=== PATIENT | female | born 1930 ===

== ENCOUNTER 2017-08-16 13:36 | Observation (INO) | payer MEDICARE, BC ==
[2017-08-16 14:26] LABS: Bilirubin Negative (Negative); Blood, Urine Small (Negative); Clarity Clear (Clear); Glucose, Urine (Dipstick) Negative (Negative); Leukocyte Negative (Negative); Nitrite Negative (Negative); Protein, Urine (Dipstick) > or equal to 300 mg/dL (Neg-Trace); Urobilinogen 0.2 mg/dL (0.2-1.0); pH, Urine 8.5 (5.0-9.0)
[2017-08-16 14:33] LABS: Bacteria/HPF None Seen HPF (None Seen); Hyaline Casts/LPF 0-3 HYALINE CAST LPF (0-3 Hyaline); Squamous Epithelial None Seen HPF (0-3); WBC/HPF 0-3 HPF (0-3)
[2017-08-16 14:36] LABS: #Basophils 0.1 thou/uL (0.0-0.2); #Eosinphils 0.3 thou/uL (0.0-0.7); #Lymphocytes 0.7 thou/uL (1.20-3.40); #Monocytes 0.5 thou/uL (0.11-0.59); #Neutrophils 6.5 thou/uL (1.40-6.50); %Eosinophils 3.3 % (0.0-10.0); %Lymphocytes 8.6 % (21.0-51.0); %Monocytes 6.3 % (0.0-10.0); %Neutrophils 80.8 % (42.0-75.0); Hemoglobin 13.9 g/dL (12.0-16.0); Mean Corpuscular HGB CONC 33.2 g/dL (32.0-36.0); Mean Corpuscular Hemoglobin 33.2 pg (27.0-31.0); Mean Corpuscular Volume 99.8 fl (81.0-99.0); Mean Platelet Volume 7.4 fL (7.4-10.4); Platelet Count 215 thou/uL (130-400); RBC Distribution Width 13.6 % (11.5-14.5)
[2017-08-16] MEDS ORDERED: Ondansetron HCl/PF 4 MG/2 ML Vial ONE (14:36)
--- NOTE | 2017-08-16 14:38 | CT ---
CT BRAIN WITHOUT CONTRAST: Date: 08/16/17 HISTORY: 87-year-old female fell when sitting to use toilet. No loss of consciousness. Patient is on warfarin. She sustained a laceration to her forehead. FINDINGS: There are no previous exams for comparison. A soft tissue hematoma is seen in the left frontal scalp. There are changes of cortical atrophy and c hronic small vessel ischemic disease. No evidence of acute infarct, hemorrhage, midline shift, or abn ormal extra-axial fluid collections are seen. The bony calvarium is intact. There are fractures invol ving the nasal bones. The visualized paranasal sinuses and mastoid air cells are well aerated. IMPRESSION: No CT evidence of acute intracranial process. POS: [facility]
[2017-08-16 14:43] LABS: INR-International Normal Ratio 2.1; PTT 38.1 SEC (22.9-36.1); Prothrombin Time 23.8 SEC (12.0-14.7)
--- NOTE | 2017-08-16 14:43 | CT ---
CT OF THE CERVICAL SPINE WITHOUT CONTRAST: Date: 08/16/17 COMPARISON: None. HISTORY: Fall when sitting to use toilet. Neck pain. Forehead trauma. TECHNIQUE: Multiple contiguous axial images were obtained in a CT of the cervical spine without contrast. Sagitt al and coronal reformats were performed. FINDINGS: The vertebral bodies and intervertebral discs demonstrate normal height and alignment without fractur e or subluxation. No prevertebral soft tissue swelling is present. The posterior facets are well aligned. Normal alignment of the skull base with the cervical spine is seen. IMPRESSION: No evidence of acute osseous abnormality of the cervical spine. POS: [facility]
--- NOTE | 2017-08-16 14:45 | CT ---
CT FACE WITHOUT CONTRAST: Date: 08/16/17 COMPARISON: None. HISTORY: Fell while trying to sit on toilet, with forehead trauma. TECHNIQUE: Multiple contiguous axial images were obtained in a CT of the face without contrast. Sagittal and cor onal reformats were performed. FINDINGS: There is soft tissue swelling in the forehead. There are minimally displaced fracture of the nasal ama manan. No other facial fractures are seen. The paranasal sinuses are well aerated. The mastoid air cell s are well aerated. The globes and retrobulbar soft tissues are unremarkable. The visualized intracranial structures are unremarkable. IMPRESSION: Mildly displaced bilateral nasal bone fractures. POS: [facility]
[2017-08-16 14:54] LABS: ALT (SGPT) 28 U/L (8-55); AST (SGOT) 34 U/L (5-34); Albumin 4.2 g/dL (3.4-4.8); Alkaline Phosphatase 95 U/L (40-150); Anion Gap 17 mmol/L (10-20); BUN (Urea Nitrogen) 14 mg/dL (9.8-20.1); Bilirubin, Total 0.6 mg/dL (0.2-1.2); Calc. Creatinine Clearance 0 mL/min (70-130); Calcium 10.4 mg/dL (7.8-10.44); Carbon Dioxide 24 mmol/L (23-31); Chloride 94 mmol/L (98-107); Estimated GFR-MDRD Greater than 90; Globulin 3.6 g/dL (2.4-3.5); Glucose 96 mg/dL (83-110); Protein, Total 7.8 g/dL (6.0-8.3); Sodium 131 mmol/L (136-145)
[2017-08-16] MEDS ORDERED: Metoprolol Tartrate 5 MG/5 ML VIAL ONE (15:56)
[2017-08-16 17:30] LABS: CKMB 4.8 ng/mL (0-6.6); Troponin I 0.016 ng/mL (< 0.028)
[2017-08-16] MEDS ORDERED: Dextrose 50% Abboject 50 ML SYRINGE SLOW IVP PRN ×2 (17:57→22:34)
[2017-08-16] MEDS ORDERED: Dextrose 5% in Water 1,000 ML IV PRN ×2 (17:57→22:34)
[2017-08-16] MEDS ORDERED: traMADol HCl 50 MG TAB PO PRN (18:58)
--- NOTE | 2017-08-16 21:07 | HP ---
ADMITTING PHYSICIAN: Dr. Cory Glass. HISTORY OF PRESENT ILLNESS: The patient is an 87-year-old female with a history of atrial fibrillati on, currently on long-term Coumadin. She was in the restroom today when she attempted to stand. She then stumbled and fell forward striking her face on the floor. She was transported to [facility]. Diagnostic evaluation in the emergency department did not reveal any intracrania l, intrathoracic or intra-abdominal injuries, nor did it reveal any orthopedic injuries. Due to the patient's long-term Coumadin use and INR greater than 2.0 with mechanism concerning for intracranial hemorrhage, Trauma Services was consulted to admit the patient for observation. PAST MEDICAL HISTORY: Hypertension, atrial fibrillation, diabetes type 2. PAST SURGICAL HISTORY: Hysterectomy and right ankle orthopedic surgery. SOCIAL HISTORY: Patient lives at home with her and daughter. Denies alcohol, drug or tobacc o use. LABORATORY DATA: Hematology: WBC 8.0, RBC 4.20, hemoglobin 13.9, hematocrit 41.9, platelets 215. C oagulation studies: PT 23.8, INR 2.1. Chemistry: Sodium 131, potassium 4.0, chloride 94, carbon di oxide 24, BUN 14, creatinine 0.55. Troponin 0.16. DIAGNOSTIC IMAGING: Diagnostic imaging did not reveal any traumatic injuries. EKG interpretation, a trial fibrillation, rate of 70. REVIEW OF SYSTEMS: Constitutional: Patient states she has been losing her balance frequently. No o ther weakness, dizziness or syncope. HEENT: Complains of swelling and injury to face. Respiratory: No shortness of breath, no cough. Cardiovascular: No palpitations. No chest pain. GI: No nause a, vomiting, diarrhea, constipation, no abdominal pain. Extremities: No pain or complaints. Muscul oskeletal: No arthralgias, no myalgias. No weakness. Neurologic: No focal weakness, no syncope, n o seizures, no LOC. PHYSICAL EXAMINATION: VITAL SIGNS: Initial vital signs, blood pressure 206/94, pulse 77, respirations 17, temperature 98.2 . Current vital signs, blood pressure 166/84, pulse 68, respirations 16, O2 sat 95% on room air. Cristian bird has been given 5 mg of Lopressor and 2 mg morphine. CONSTITUTIONAL: Elderly female lying on bed in no acute distress. HEENT: Bilateral periorbital ecchymosis with superficial abrasions and contusions to forehead and mi dface. Edema to mid face. No respiratory distress. No drainage from nose. No blurred vision. PULMONARY: Bilateral breath sounds. Clear to auscultation. CARDIOVASCULAR: Atrial fibrillation, rate of 70. ABDOMEN: Soft, nontender, nondistended. EXTREMITIES: Moves all extremities well. PELVIS: With no pain to palpation. BACK: No trauma noted to posterior surfaces. SKIN: No rashes. Warm and dry. ASSESSMENT: 1. Status post ground-level fall. 2. Multiple facial abrasions and contusions. 3. Mildly displaced bilateral nasal bone fractures. 4. History of atrial fibrillation. 5. Chronic Coumadin use. 6. INR greater than 2.0. PLAN: 1. Admit to stroke unit for observation. 2. Repeat CT in a.m. 3. Discussed with director independent at length about patient's risks versus benefits of continued Coumadin use versus high risk of fall. This was discussed with her primary director independent, who agrees that the patient should cease taking Coumadin indefinitely. At discharge, patient may be started on aspirin. She is to follow up with her director independent within [address] head in a.m. 5. Digoxin level in a.m. The patient was seen and examined with Dr. Glass who agrees with the assessment and plan for admiss n.
[2017-08-16 22:33] VITALS: BMI 23.1
[2017-08-16] MEDS ORDERED: HumaLOG 300 UNITS/3 ML VIAL SC PRN (22:34)
[2017-08-17] MEDS: Acetaminophen 500 MG TAB PO PRN ×2 (01:19→09:08)
[2017-08-17 05:51] LABS: #Eosinphils 0.1 thou/uL (0.0-0.7); #Lymphocytes 0.5 thou/uL (1.20-3.40); #Monocytes 0.5 thou/uL (0.11-0.59); #Neutrophils 4.5 thou/uL (1.40-6.50); %Basophils 0.6 % (0.0-1.0); %Eosinophils 2.6 % (0.0-10.0); %Lymphocytes 9.2 % (21.0-51.0); %Monocytes 8.7 % (0.0-10.0); %Neutrophils 78.9 % (42.0-75.0); Hemoglobin 11.9 g/dL (12.0-16.0); Mean Corpuscular Hemoglobin 32.8 pg (27.0-31.0); Mean Corpuscular Volume 99.6 fl (81.0-99.0); Mean Platelet Volume 7.4 fL (7.4-10.4); Platelet Count 199 thou/uL (130-400); RBC Distribution Width 13.4 % (11.5-14.5); Red Blood Cell (RBC) Count 3.64 mill/uL (4.20-5.40); White Blood Cell (WBC) Count 5.7 thou/uL (4.8-10.8)
[2017-08-17 05:52] LABS: INR-International Normal Ratio 2.2; PTT 41.5 SEC (22.9-36.1); Prothrombin Time 24.9 SEC (12.0-14.7)
[2017-08-17 06:06] LABS: Digoxin 0.39 ng/mL (0.8-2.0)
--- NOTE | 2017-08-17 07:34 | CT ---
PRELIMINARY REPORT/[facility]/EMERGENCY AFTER HOURS PROCEDURE: EXAM: CT Head Without Intravenous Contrast CLINICAL HISTORY: 87 years old, female; Injury or trauma; Fall; Initial encounter; Abrasion; Forehead; Patient HX: Eval for intracranial trauma TECHNIQUE: Axial computed tomography images of the head/brain without intravenous contrast. COMPARISON: No relevant prior studies available. FINDINGS: Brain: Moderate volume loss No hemorrhage.Moderate white matter disease. No edema. Ventricles: Unremarkable. No ventriculomegaly. Bones/joints: Nasal bone/nasal septal fractures Soft tissues: Left periorbital/frontal scalp swelling Sinuses: Unremarkable as visualized. No acute sinusitis. Mastoid air cells: Unremarkable as visualized. No mastoid effusion. IMPRESSION: Nasal bone/nasal septal fractures No intracranial hemorrhage.Please see discussion above. Thank you for allowing us to participate in the care of your patient. Dictated and Authenticated by: Mitch Hoyt MD 08/17/2017 12:49 AM Central Time ([place] & [place]) FINAL REPORT CT BRAIN WITHOUT CONTRAST: I agree with the preliminary report given by Dr. Mitch Hoyt of [facility]. POS: [facility]
[2017-08-17] MEDS ORDERED: Lisinopril 20 MG TAB PO SCH (09:00)
[2017-08-17] MEDS ORDERED: Digoxin 0.125 MG TAB PO SCH (09:00)
[2017-08-17] MEDS ORDERED: metFORMIN XR 500 MG TAB PO SCH (09:00)
[2017-08-17] MEDS ORDERED: Amlodipine 5 MG TAB PO SCH (09:00)
[2017-08-17] MEDS ORDERED: Citalopram 20 MG TAB PO SCH (09:00)
[2017-08-17] MEDS ORDERED: Prevnar 13-Val Conj/PF 0.5 ML SYRINGE IM ONE (09:00)
[2017-08-17] MEDS ORDERED: FLU VACC TS2017-18 (>65YR) 0.5 ML SYRINGE IM ONE (09:00)
[2017-08-17 11:42] VITALS: BP 125/54; TEMP 99
--- NOTE | 2017-08-18 00:06 | DIS ---
DATE OF ADMISSION: 08/16/2017 DATE OF DISCHARGE: 08/17/2017 CHIEF COMPLAINT: Evaluation of head injury and facial injuries. HISTORY OF PRESENT ILLNESS: The patient is an 87-year-old female with a history of hypertension, typ e 2 diabetes, and atrial fibrillation on warfarin, who sustained a fall from the commode while attemp ting to stand. She struck her face on the floor. She was transported to [facility] where diagnostic evaluation did not reveal any intracranial, intrathoracic, or intraabdominal in juries. However, it did reveal mildly displaced nasal bone fractures. There were no other orthopedi c injuries. Due to the patient's care home warfarin use and INR greater than 2.0 with mechanism conc erning for intracranial hemorrhage. Trauma Services was consulted to admit the patient to the stroke floor for observation. PRIMARY DIAGNOSES: 1. Status post ground level fall. 2. Multiple facial abrasions and contusions. 3. Mildly displaced bilateral nasal bone fractures. 4. History of atrial fibrillation. 5. Chronic Coumadin use. 6. INR greater than 2.0. While in house a followup brain CT was performed on the morning of 08/17/2017, which was negative. A fter discussing her case with her primary lead fabricator, the decision was made to discontinue her Coum eunice indefinitely. She was discharged in stable condition with instructions to follow up with Cardio logy in 1 week. DISCHARGE MEDICATIONS: NEW MEDICATIONS: Acetaminophen 1000 mg p.o. q.6 hours, tramadol 50 mg p.o. q.6 hours as needed. CONTINUED MEDICATIONS: Potassium chloride 10 mEq p.o. daily, fenofibrate 145 mg p.o. daily, citalopr am 20 mg p.o. daily, amlodipine 5 mg p.o. daily, metformin 500 mg p.o. daily, metoprolol 50 mg p.o. d aily, furosemide 20 mg p.o. daily, lisinopril 20 mg p.o. daily, digoxin 125 mcg p.o. daily. ACTIVITY ORDERS: No restrictions. DIET: No restrictions. FOLLOWUP INSTRUCTIONS: The patient was instructed to follow up with her primary care physician, Dr. Olivier Little in 10 days. The patient was also instructed to follow up with her lead fabricator, Dr. Chana Arellano in 7 days.
--- NOTE | 2017-08-21 12:23 | EKG ---
Test Reason : Blood Pressure : / mmHG Vent. Rate : 070 BPM Atrial Rate : 062 BPM P-R Int : 000 ms QRS Dur : 080 ms QT Int : 410 ms P-R-T Axes : 000 000 -77 degrees QTc Int : 442 ms Atrial fibrillation Nonspecific ST and T wave abnormality , probably digitalis effect Abnormal ECG Confirmed by ISRAEL Benitez, TELMA ([id number]), supervising editor trailer ANASTASIIA CADET ([id number]) on 08/21/2017 12:23:05 PM Referred By: Confirmed By:TELMA WOOD M.D.
== END 2017-08-17 14:33 | disposition home or self-care (01) ==
LOC: ERS 13:36 → ERHOLD 17:57 → 2SE 21:41
PROVIDERS: ADMIT Specialist; ATTEND Specialist
DX: S02.2XXA Fracture of nasal bones, initial encounter for closed fracture (principal); S00.83XA Contusion of other part of head, initial encounter; I10 Essential (primary) hypertension; E11.9 Type 2 diabetes mellitus without complications; I48.91 Unspecified atrial fibrillation; R79.1 Abnormal coagulation profile; Z79.01 Long term (current) use of anticoagulants; Z90.710 Acquired absence of both cervix and uterus; Z98.890 Other specified postprocedural states; W18.11XA Fall from or off toilet without subsequent striking against object, initial encounter
CPT/HCPCS: 12011; 70450 ×2; 70486; 72125; 80053; 80162; 82553; 82962 ×2; 84484; 85025 ×2; 85610 ×2; 85730 ×2; 93005; 96374; 96375; 97139; 99285; G0378; 36415; 36416; 81003; 81015; G0390; J2270; J2405